=== PATIENT | female | born 1980 | race Caucasian/White ===

== ENCOUNTER 2021-04-27 21:51 | Emergency (ER) | payer OTHER ==
[~2021-04-27] VITALS: Ht 157.5 cm; Wt 83.5 kg
[~2021-04-27 21:51] MED LIST: ACETAMINOPHEN-1 EAC1 OR; IBUPROFEN 800800 M1 PO; KEFLEX500 MG PO; LANOLIN56 GM; NORCO 5-325 TA1 EACH PO; PRENATAL; SLOW FE 160MG160 MG PO; ZOFRAN ODT4 MG PO
[2021-04-28 00:14] VITALS: BP 112/80
== END 2021-04-28 00:14 | disposition home or self-care (01) ==
LOC: ER 21:51
PROVIDERS: Physician Assistant
DX: U07.1 COVID-19 (principal); J45.909 Unspecified asthma, uncomplicated; F17.210 Nicotine dependence, cigarettes, uncomplicated; Z79.899 Other long term (current) drug therapy; Z91.040 Latex allergy status; Z88.6 Allergy status to analgesic agent

== ENCOUNTER 2021-07-17 13:35 | Emergency (ER) | payer OTHER ==
[~2021-07-17] VITALS: Ht 154.9 cm; Wt 74.8 kg
[2021-07-17 14:55] LABS: ABSOLUTE NEUTROPHILS 3.4 thou/uL (1.4-8.2); BASOPHILS 0.5 % (0.0-2.0); EOSINOPHILS 3.8 % (0.0-3.0); HEMATOCRIT 41.8 % (37.0-47.0); HEMOGLOBIN 13.7 gm/dL (12.0-15.0); LYMPHOCYTES 28.8 % (24.0-44.0); MCHC 32.7 g/dL (28.0-37.0); MCV 85.6 fL (80.0-100.0); MONOCYTES 6.4 % (1.0-8.0); PLATELET COUNT 228 thou/uL (150-400); POLYS 60.5 % (36.0-66.0); RBC 4.89 mil/uL (4.20-5.00); RDW 13.7 % (10.5-14.5); WBC 5.6 thou/uL (4.0-11.0)
[2021-07-17 15:22] LABS: ANION GAP 9 mmol/L (7-16); BUN 9 mg/dL (7-18); CALCIUM 9.1 mg/dL (8.5-10.1); CHLORIDE 105 mmol/L (98-107); CO2 23 mmol/L (21-32); CREATININE 0.6 mg/dL (0.6-1.0); GLUCOSE 117 mg/dL (74-106); SODIUM 137 mmol/L (136-145)
[2021-07-17 15:35] LABS: ALBUMIN 3.4 g/dL (3.4-5.0); SGOT 12 U/L (15-37); SGPT 19 U/L (14-59); TOTAL BILIRUBIN 0.3 mg/dL (0.2-1.0); TOTAL PROTEIN 7.1 g/dL (6.4-8.2)
[2021-07-17] MEDS ORDERED: ALBUTEROL2.5 MG/31 INH (16:22)
[2021-07-17] MEDS ORDERED: PROAIR HFA8.5 GM INH (16:22)
[2021-07-17] MEDS ORDERED: NEBULIZER MISCELL (16:22)
[2021-07-17] MEDS ORDERED: PREDNISONE 20 M20 MG PO (16:22)
[2021-07-17 16:33] VITALS: BP 115/79
--- NOTE | 2021-07-18 10:32 | EKG ---
[address] [address] ELECTROCARDIOGRAM REPORT Name: KATARINA HENLEY Room #: [facility] ([place], [place])#: [id number] Admission: 07/17/21 Attend Phys: Discharge: 07/17/21 Date of : 78 Report #: [id number] [facility] ED Test Date: 2021-07-17 Test Time: 13:41:44 Pat Name: KATARINA HENLEY Department: Room: Gender: F Entry Clerk: : 1980 Requested By: Manoj Carrera Order Number: [id number] MD: Joseph Westbrook Measurements Intervals [place] Rate: 104 P: 64 [place]: 122 QRS: 100 QRSD: 89 T: 48 QT: 338 QTc: 445 Interpretive Statements Sinus tachycardia Right axis deviation Baseline wander in lead(s) II,III,aVF No previous ECG available for comparison Electronically Signed On 07-18-2021 10:32:18 STATISTICAL MACHINE SERVICER by Joseph Westbrook [email or web address] <ELECTRONICALLY SIGNED> By: Joseph Westbrook MD 07/18/21 1032 1341 1341 Joseph Westbrook MD /EPI
== END 2021-07-17 16:29 | disposition home or self-care (01) ==
LOC: ER 13:35
PROVIDERS: Emergency Medicine
DX: J45.901 Unspecified asthma with (acute) exacerbation (principal); F17.210 Nicotine dependence, cigarettes, uncomplicated; Z91.040 Latex allergy status; Z88.6 Allergy status to analgesic agent; Z98.890 Other specified postprocedural states

== ENCOUNTER 2021-07-22 09:52 | Emergency (ER) | payer OTHER ==
[~2021-07-22] VITALS: Ht 154.9 cm; Wt 74.8 kg
[~2021-07-22 09:52] MED LIST changes: +ALBUTEROL2.5 MG/31 INH; +NEBULIZER MISCELL; +PREDNISONE 20 M20 MG PO; +PROAIR HFA8.5 GM INH
[2021-07-22] MEDS ORDERED: NORCO5 PO (12:45)
[2021-07-22] MEDS ORDERED: MEDROLDOSEPACK PO (12:45)
[2021-07-22 12:52] VITALS: BP 108/63
== END 2021-07-22 12:58 | disposition home or self-care (01) ==
LOC: ER 09:52
DX: R07.81 Pleurodynia (principal); J45.909 Unspecified asthma, uncomplicated; F17.210 Nicotine dependence, cigarettes, uncomplicated; Z98.890 Other specified postprocedural states; Z91.09 Other allergy status, other than to drugs and biological substances; Z85.41 Personal history of malignant neoplasm of cervix uteri; Z79.51 Long term (current) use of inhaled steroids; Z79.899 Other long term (current) drug therapy; Z88.5 Allergy status to narcotic agent; Z91.040 Latex allergy status